=== PATIENT | male | born 1995 | race Hispanic/Latino ===

== ENCOUNTER 2023-03-11 14:36 | Emergency (ER) | payer OTHER ==
[~2023-03-11] VITALS: Ht 165.1 cm; Wt 81.1 kg
[2023-03-11 14:37] VITALS: TEMP 97.6
[2023-03-11 17:30] VITALS: BP 126/58; O2SAT 99
== END 2023-03-11 17:30 | disposition home or self-care (01) ==
LOC: M ED 14:36
DX: S61.531A Puncture wound without foreign body of right wrist, initial encounter (principal); W60.XXXA Contact with nonvenomous plant thorns and spines and sharp leaves, initial encounter; Y99.1 Military activity

== ENCOUNTER 2023-06-12 15:31 | Emergency (ER) | payer OTHER ==
[~2023-06-12] VITALS: Ht 165.1 cm; Wt 80.3 kg
[2023-06-12 15:31] VITALS: BP 118/56; TEMP 99; O2SAT 99
[2023-06-12] MEDS ORDERED: HYDR100C PO (15:40)
[2023-06-12] MEDS ORDERED: FLUO20CA22 PO (15:40)
[2023-06-12] MEDS ORDERED: KETOROLAC 60MG 2ML VIAL IM ONE (19:50)
[2023-06-12] MEDS ORDERED: LIDOCAINE 5% (LIDODERM) PATCH TD ONE (19:50)
[2023-06-12] MEDS ORDERED: ASPE4PAD TOP (20:43)
[2023-06-12] MEDS ORDERED: METH-1165 PO (20:43)
[2023-06-12] MEDS ORDERED: NAPR-837 PO (20:43)
[2023-06-12] MEDS ORDERED: methocarbamoL 750 MG TAB PO ONE (20:45)
== END 2023-06-12 21:00 | disposition home or self-care (01) ==
LOC: M ED 15:31
DX: M54.50 Low back pain, unspecified (principal); M54.17 Radiculopathy, lumbosacral region
CPT/HCPCS: 72131; 96372; 99282; J1885